=== PATIENT | female | born 1980 | race Caucasian/White ===

== ENCOUNTER 2017-09-02 07:12 | Day surgery (SDC) | payer OTHER ==
[2017-09-02 08:21] LABS: ADD MAN DIFF? NO
[2017-09-02 08:40] LABS: WHITE BLOOD COUNT 7.6 10^3/ul (4.8-10.8)
[2017-09-02 08:40] LABS: BASOPHIL # 0.1 10^3/ul (0.0-0.1); BASOPHILS % 0.7 % (0.0-2.0); EOSINOPHILS # 0.5 10^3/ul (0.0-0.5); EOSINOPHILS % 6.5 % (0.0-7.0); HEMATOCRIT 37.7 % (37.0-47.0); HEMOGLOBIN 12.4 g/dl (12.0-16.0); LYMPHOCYTES # 2.3 10^3/ul (0.8-2.9); LYMPHOCYTES % 30.5 % (15.0-51.0); MEAN CORPUSCULAR HEMOGLOBIN 28.2 pg (29.0-33.0); MEAN CORPUSCULAR HGB CONC 32.9 g/dl (32.0-37.0); MEAN CORPUSCULAR VOLUME 85.9 fl (82.0-101.0); MEAN PLATELET VOLUME 10.1 fl (7.4-10.4); MONOCYTE # 0.7 10^3/ul (0.3-0.9); MONOCYTES % 9.8 % (0.0-11.0); NEUTROPHILS % 52.2 % (39.0-77.0); PLATELET COUNT 256 10^3/UL (140-415); RED BLOOD COUNT 4.39 10^6/ul (4.20-5.40); RED CELL DISTRIBUTION WIDTH 13.6 % (11.5-14.5)
[2017-09-02 08:47] LABS: ADD UMIC YES; UR ASCORBIC ACID NEGATIVE (NEGATIVE); UR BILIRUBIN (Dip) NEGATIVE (NEGATIVE); UR BLOOD (Dip) NEGATIVE (NEGATIVE); UR CLARITY CLEAR (CLEAR); UR COLOR YELLOW (YELLOW); UR GLUCOSE (Dip) NEGATIVE (NEGATIVE); UR KETONES (Dip) NEGATIVE (NEGATIVE); UR LEUKOCYTE ESTERASE (Dip) TRACE Leu/ul (NEGATIVE); UR NITRITE (Dip) NEGATIVE (NEGATIVE); UR RBC 1 /HPF (0-5); UR SQUAMOUS EPITHELIAL CELL FEW /HPF (FEW); UR TOTAL PROTEIN (Dip) NEGATIVE (NEGATIVE); UR UROBILINOGEN (Dip) NEGATIVE (NEGATIVE); UR WBC 1 /HPF (0-5)
[2017-09-02 08:59] LABS: INR 1.02; PROTIME 13.5 Sec (11.9-14.9); PT RATIO 1.1
[2017-09-02 09:00] LABS: PARTIAL THROMBOPLASTIN TIME 32.4 Sec (25.0-35.0)
[2017-09-02] MEDS ORDERED: HYDROmorphONE (0.2 MG/ML) 10ML SYG IV ×2 (10:00)
[2017-09-02] MEDS ORDERED: MIDAZOLAM 1 MG/ML 2 ML INJ IV (10:00)
[2017-09-02] MEDS ORDERED: OXYCODONE/ACETAMINOPHEN (5/325) TAB PO (10:00)
[2017-09-02] MEDS ORDERED: EPHEDrine SULFATE 50 MG/5 ML SYG IV (10:00)
[2017-09-02] MEDS ORDERED: MEPERIDINE 25 MG INJ IV (10:00)
[2017-09-02] MEDS ORDERED: FENTAnyl 50 MCG/ML VIAL IV ×2 (10:00)
[2017-09-02] MEDS ORDERED: hydrALAzine 20 MG INJ IV (10:00)
[2017-09-02] MEDS ORDERED: ONDANSETRON 4 MG INJ IV (10:00)
[2017-09-02] MEDS ORDERED: LABETALOL HCL 20MG INJ IV (10:00)
[2017-09-02] MEDS ORDERED: LIDOCAINE 2% (SDV) 5 ML INJ (10:28)
[2017-09-02] MEDS ORDERED: PROPOFOL 20 ML (10:28)
[2017-09-02] MEDS ORDERED: ROCURONIUM 50 MG INJ ×2 (10:28→11:50)
[2017-09-02] MEDS ORDERED: GLYCOPYRROLATE 0.4 MG INJ ×3 (10:28→11:30)
[2017-09-02] MEDS ORDERED: NEOSTIGMINE 3 MG/3 ML SYRINGE ×2 (10:28→11:29)
[2017-09-02] MEDS ORDERED: SUCCINYLCHOLINE CHLORIDE 100 MG/5 ML SYG IV (10:28)
[2017-09-02] MEDS ORDERED: MEPERIDINE 100 MG INJ (10:28)
[2017-09-02] MEDS ORDERED: EPHEDrine SULFATE 50 MG/5 ML SYG (10:53)
[2017-09-02] MEDS ORDERED: ATROPINE 1 MG/10 ML SYRINGE (10:53)
[2017-09-02] MEDS: LIDOCAINE 1%/EPI 30 ML INJ (11:05)
[2017-09-02] MEDS ORDERED: CEFAZOLIN 1 GM INJ (11:10)
[2017-09-02] MEDS ORDERED: ONDANSETRON 4 MG INJ (11:12)
[2017-09-02] MEDS ORDERED: METOCLOPRAMIDE 10 MG INJ (11:12)
[2017-09-02] MEDS: METOCLOPRAMIDE 10 MG INJ IV (12:36)
[2017-09-02] MEDS: DIPHENHYDRAMINE 50 MG INJ IV (12:36)
[2017-09-02] MEDS: FENTAnyl 50 MCG/ML VIAL IV ×2 (12:41→12:48)
[2017-09-02] MEDS: HYDROmorphONE (0.2 MG/ML) 10ML SYG IV (13:32)
[2017-09-02] MEDS: OXYCODONE/ACETAMINOPHEN (5/325) TAB PO (14:46)
== END 2017-09-02 16:00 | disposition home or self-care (01) ==
LOC: SDS 07:12
DX: S66.021A Laceration of long flexor muscle, fascia and tendon of right thumb at wrist and hand level, initial encounter (principal); S64.31XA Injury of digital nerve of right thumb, initial encounter; W45.8XXA Other foreign body or object entering through skin, initial encounter; Y92.098 Other place in other non-institutional residence as the place of occurrence of the external cause; E66.01 Morbid (severe) obesity due to excess calories; Z68.43 Body mass index [BMI] 50.0-59.9, adult
CPT/HCPCS: 26356; 71045; 81001; 84703; 85025; 85610; 85730; 93005